=== PATIENT | male | born 1940 | race Caucasian/White ===

== ENCOUNTER → 2016-07-24 | Outpatient (CLI) | payer MEDICARE, BC ==
[~2016-07-24] MED LIST: AC325T PO; AMLO1CAP5 PO; APIX5TAB PO; ASCO10006 PO; ASPI-894 PO; ATOR40TA2 PO; ATOR80TA PO; CETI10TA20 PO; CHOL200018 PO; CYAN100088 PO; DIGO125T PO; DIPH25CA79 PO; DPH25C PO; FLT11013 INH; FLUT9.9S NS; LINA5TAB PO; METF-473 PO; METF1000 PO; METF500T4 PO; METO-270 PO; METO-272 PO; METO25TA60 PO; METO50TA7 PO; MULT-35 PO; NIAC400C2 PO; NIAC500T24 PO; NITR0.4T SL; NTR.4SL SL; OMEG1CAP14 PO; OMEG1CAP61 PO; OMEP20CA12 PO; OMG1KC PO; PRAM0.5T2 PO; TRM50T PO; VIT B-12; VIT-9 PO; VITA1CAP PO; WARF6TAB3 PO
== END ==
LOC: EMS 12:15
PROVIDERS: ATTEND Family Medicine
DX: R07.89 Other chest pain (principal)

== ENCOUNTER 2016-07-25 00:24 | Emergency (ER) | payer MEDICARE, BC ==
[~2016-07-25] VITALS: Ht 165.1 cm; Wt 79.5 kg
[2016-07-25] MEDS ORDERED: SODIUM CHLORIDE FLUSH 3 ML SYR IV ONE (00:45)
[2016-07-25] MEDS ORDERED: SODIUM CHLORIDE FLUSH 10 ML SYR IV PRN (00:45)
[2016-07-25] MEDS ORDERED: SODIUM CHLORIDE 250 ML IV SCH (00:45)
[2016-07-25] MEDS ORDERED: ALBUTEROL 0.083% NEB SOLUTION 2.5 MG/3 ML VIAL INH ONE (00:45)
[2016-07-25] MEDS ORDERED: KETOROLAC 30 MG/ML (TORADOL) 1 ML VIAL IV ONE (00:45)
[2016-07-25 01:39] LABS: MEAN CORPUSCULAR HEMOGLOBIN 29.8 PG (26.0-34.0); MEAN CORPUSCULAR VOLUME 88 FL (80-100); MEAN PLATELET VOLUME 10.1 FL (6.0-9.5); PLATELET COUNT 246 10^3uL (150-450); WHITE BLOOD COUNT 11.55 10^3uL (4.0-11.0)
[2016-07-25] MEDS ORDERED: HYDROmorphone 1 MG/ML (DILAUDID) SYRINGE IV ONE (01:40)
[2016-07-25] MEDS ORDERED: PROMETHAZINE HCL INJ 12.5 MG in SODIUM CHLORIDE 25 ML IV ONE (01:40)
[2016-07-25 01:43] LABS: AMYLASE* 67 U/L (25-115); LIPASE* 77 U/L (23-300)
[2016-07-25 01:45] LABS: ALBUMIN 2.7 g/dL (3.4-5.0); ALKALINE PHOSPHATASE 79 U/L (38-126); BUN/CREATININE RATIO 17 (10-20); CALCULATED IONIZED CALCIUM 4.1 mg/dL (3.8-4.6); TOTAL PROTEIN 5.7 g/dL (6.4-8.5)
[2016-07-25 01:50] LABS: CREATINE KINASE < 20 U/L (55-170)
[2016-07-25] MEDS ORDERED: INSULIN LISPRO 1 UNIT/0.01 ML (HUMALOG) DOSE SC ONE (01:55)
[2016-07-25] MEDS ORDERED: NITROGLYCERIN SUBLINGUAL 0.4 MG (NITROQUICK) TABLET SL PRN (02:10)
[2016-07-25 02:13] LABS: ANISOCYTOSIS MODERATE; BAND NEUTROPHILS % 0 % (0-6); EOSINOPHILS % 0 % (0-4); HYPOCHROMASIA SLIGHT; LYMPHOCYTES # 0.9 #; MONOCYTES # 0.7 #; MONOCYTES % 6 % (3-11); POIKILOCYTOSIS SLIGHT; SEGMENTED NEUTROPHILS % 86 % (51-67); TOTAL CELLS COUNTED 100
[2016-07-25 02:17] LABS: RBC MORPH SEE REFERENCE (NORMAL)
[2016-07-25 02:24] LABS: BILIRUBIN,URINE Negative (Negative); CLARITY,URINE Clear; COLOR,URINE Yellow; GLUCOSE, URINE (UA) 2+ (Negative); LEUKOCYTE ESTERASE ,URINE Negative (Negative); PH,URINE 5.5 (5.0 - 8.0); UROBILINOGEN,URINE 0.2 mg/dL (0.2-1.0)
[2016-07-25 02:50] LABS: RBC,URINE 0-2 /HPF; URINE CENTRIFUGED VOLUME 12 mL
[2016-07-25 02:55] LABS: AMPHETAMINE SCREEN, URINE Negative (Negative); CANNABINOID SCREEN, URINE Negative (Negative); METHAMPHETAMINE SCREEN URINE S NEGATIVE (NEGATIVE); OPIATE SCREEN URINE Negative (Negative)
[2016-07-25 02:56] LABS: PROPOXYPHENE STAT NEGATIVE (NEGATIVE)
[2016-07-25 03:08] VITALS: BP 97/49
--- NOTE | 2016-07-25 06:52 | Diagnostic Imaging Report ---
INDICATION: Chest pain. COMPARISON: 03/16/2016. FINDINGS: Single frontal view of the chest is obtained. Heart size is normal. There is no pulmonary vascular congestion. There is no pneumothorax, mediastinal widening or pleural fluid. Elevation of right hemidiaphragm is unchanged. Scarring in the lung bases appear similar to the prior study. No new pulmonary parenchymal abnormality is seen. There are postoperative changes of left shoulder. IMPRESSION: No radiographic evidence of an acute cardiopulmonary process. No significant interval change from the prior study. Dictated by: Dictated on workstation # [id number]
== END 2016-07-25 03:34 | disposition short-term general hospital (02) ==
LOC: EDUNIT# 00:24 → ED 00:26
DX: I21.4 Non-ST elevation (NSTEMI) myocardial infarction (principal); Z87.891 Personal history of nicotine dependence; I25.119 Atherosclerotic heart disease of native coronary artery with unspecified angina pectoris; I11.9 Hypertensive heart disease without heart failure; Z95.5 Presence of coronary angioplasty implant and graft; I25.2 Old myocardial infarction; Z79.899 Other long term (current) drug therapy
CPT/HCPCS: 36415; 71010; 80053; 80162; 81003; 81015; 82150; 82550; 82553; 83690; 83880; 84443; 84484; 85025; 85610; 86140; 87205; 93005; 94640; 96365; 96375; 99285; A9270; G0478; G0480; J1170; J1815; J1885; J2550; J7050; J7613; 80307; 80320; 93010

== ENCOUNTER → 2016-07-25 | Outpatient (CLI) | payer MEDICARE, BC | LOC: EMS 03:30 | DX: I21.4 Non-ST elevation (NSTEMI) myocardial infarction (principal); D64.9 Anemia, unspecified; E11.9 Type 2 diabetes mellitus without complications; M54.2 Cervicalgia ==